=== PATIENT | male | born 1980 | race Two or more races ===

== ENCOUNTER 2017-01-20 12:37 | Emergency (ER) | payer SELFPAY ==
[~2017-01-20] VITALS: Ht 182.9 cm; Wt 181.4 kg
[2017-01-20 13:31] VITALS: BP 128/68
[2017-01-20] MEDS ORDERED: HYDROmorphone HCL 2 MG/ML VL IM ONE (16:15)
[2017-01-20] MEDS ORDERED: ONDANSETRON HCL 4 MG/2 ML VIAL IM ONE (16:15)
[2017-01-20] MEDS ORDERED: cefTRIAXone SOD 1,000 MG VL IM ONE (16:30)
[2017-01-20] MEDS ORDERED: LIDOCAINE 1% HCL (LOCAL ANESTH.) INJ 20ML MDV IJ ONE (17:45)
[2017-01-20] MEDS ORDERED: LIDOCAINE 1% HCL (LOCAL ANESTH.) INJ 20ML MDV ONE (18:06)
[2017-01-20] MEDS ORDERED: ONDANSETRON HCL 4 MG/2 ML VIAL IV ONE (19:00)
[2017-01-20] MEDS ORDERED: HYDROmorphone HCL 2 MG/ML VL IV ONE (19:00)
[2017-01-20] MEDS ORDERED: BACITRACIN-POLYMYXIN B TOPICAL OINT UD TOP ONE (19:01)
== END 2017-01-20 19:31 | disposition home or self-care (01) ==
LOC: EDAGE 12:37 → ER 12:48
DX: S01.81XA Laceration without foreign body of other part of head, initial encounter (principal); S80.01XA Contusion of right knee, initial encounter; B19.20 Unspecified viral hepatitis C without hepatic coma; S50.02XA Contusion of left elbow, initial encounter; V43.52XA Car driver injured in collision with other type car in traffic accident, initial encounter; Y93.89 Activity, other specified; Y99.8 Other external cause status; Y92.89 Other specified places as the place of occurrence of the external cause
CPT/HCPCS: 12055; 70450; 70486; 72125; 73080; 73562; 74176; 96372; 96374; 96375; 99284; J0696; J1170; J2001; J2405

== ENCOUNTER 2017-01-22 09:41 | Emergency (ER) | payer OTHER ==
[~2017-01-22] VITALS: Ht 182.9 cm; Wt 165.6 kg
[2017-01-22 10:37] VITALS: BP 140/81
== END 2017-01-22 10:53 | disposition home or self-care (01) ==
LOC: ER 09:41
DX: S01.81XD Laceration without foreign body of other part of head, subsequent encounter (principal); Z48.01 Encounter for change or removal of surgical wound dressing

== ENCOUNTER 2017-01-31 12:33 | Emergency (ER) | payer SELFPAY ==
[~2017-01-31] VITALS: Ht 185.4 cm; Wt 163.3 kg
[2017-01-31 12:46] VITALS: BP 138/71
[2017-01-31] MEDS ORDERED: BACITRACIN TOP OINT 1 UD PKG TOP ONE (14:00)
== END 2017-01-31 13:57 | disposition home or self-care (01) ==
LOC: ER 12:38
DX: S01.81XD Laceration without foreign body of other part of head, subsequent encounter (principal); J02.9 Acute pharyngitis, unspecified; Z48.02 Encounter for removal of sutures

== ENCOUNTER 2018-10-10 17:40 | Emergency (ER) | payer OTHER ==
[~2018-10-10] VITALS: Ht 182.9 cm; Wt 167.8 kg
[2018-10-10 18:30] LABS: Basophils # (auto) 0.1 uL; Basophils % (auto) 0.5 % (0.0-2.0); Eosinophils # (auto) 0.1 uL; Eosinophils % (auto) 0.3 % (0.0-7.0); Hematocrit 50.5 % (41.0-53.0); Hemoglobin 16.5 g/dL (13.5-17.5); Lymphocytes # (auto) 1.7 uL; Lymphocytes % (auto) 9.5 % (10.0-50.0); Mean Corpuscular Hemoglobin 30.3 pg (28.0-32.0); Mean Corpuscular Hgb Conc. 32.7 g/dL (32.0-36.0); Mean Corpuscular Volume 92.4 fL (80.0-100.0); Monocytes # (auto) 0.8 uL; Monocytes % (auto) 4.3 % (0.0-12.0); Neutrophils # (auto) 15.7 uL; Neutrophils % (auto) 85.4 % (37.0-80.0); Nucleated Red Blood Cells % 0.1 %; Platelet Count (auto) 247 10^3/uL (140-450); Red Blood Cells 5.46 10^6/uL (4.5-5.90); Red Cell Distribution Width 14.1 % (11.8-14.3); White Blood Cell 18.3 10^3/uL (4.4-10.8)
[2018-10-10 18:40] LABS: Calcium 8.2 mg/dL (8.5-10.1); Potassium 3.4 mmol/L (3.5-5.1)
[2018-10-10 18:42] LABS: BUN/Creatinine Ratio 10.3
[2018-10-10 18:44] LABS: Bilirubin, Total 0.4 mg/dL (0.2-1.0); Total Protein 7.9 g/dL (6.4-8.2)
[2018-10-11] MEDS ORDERED: cefTRIAXone 1GM/50ML D5W 50 ML IV ONE (01:45)
[2018-10-11] MEDS ORDERED: VANCOMYCIN 1GM/250ML 250 ML IV ONE ×2 (01:45→06:45)
[2018-10-11] MEDS ORDERED: ACETAMINOPHEN 500 MG TAB PO ONE (02:30)
[2018-10-11 03:42] VITALS: BP 146/99
[2018-10-11] MEDS ORDERED: PIPERACILLIN-TAZO 4.5GM 100 ML IV ONE (06:45)
== END 2018-10-11 09:32 | disposition home or self-care (01) ==
LOC: ER 17:44
DX: L03.116 Cellulitis of left lower limb (principal); E66.01 Morbid (severe) obesity due to excess calories; Z68.43 Body mass index [BMI] 50.0-59.9, adult
CPT/HCPCS: 36415; 73700; 80053; 85025; 87040; 93971; 96365; 96366; 96368; 99284; J0696; J2543; J3370